=== PATIENT | male | born 1995 | race Caucasian/White ===

== ENCOUNTER 2024-01-21 11:25 | Emergency (ER) | payer SELFPAY ==
[2024-01-21 11:33] VITALS: BP 129/84; PULSE 83; TEMP 36.8; O2SAT 98; BMI 26.6
[2024-01-21 11:42] LABS: Basophils % 0.5 %; Eosinophils # 0.2 10^3/uL (0.0-0.8); Eosinophils % 3.4 %; Hematocrit 44.3 % (37-53); Lymphocytes # 2.2 10^3/uL (0.8-4.8); Lymphocytes % 35.3 %; Mean Corpuscular HGB Conc 34.8 g/dL (30-55); Mean Corpuscular Hemoglobin 30.8 pg (27-33); Mean Corpuscular Volume 88.6 fl (82-101); Mean Platelet Volume 8.9 fL (7.4-10.4); Monocytes # 0.5 10^3/uL (0.2-0.9); Monocytes % 8.1 %; Neutrophils # 3.25 10^3/uL (1.8-7.7); Neutrophils % 52.5 %; Nucleated Red Blood Cells % 0 %; Platelet Count 296 10^3/cmm (157-399); Red Cell Distribution Width 12.3 % (12.1-15.1); White Blood Count 6.18 10^3/uL (3.29-11.43)
--- NOTE | 2024-01-21 11:51 | ED.C_ITS ---
HPI - Psych 2 General: Chief Complaint: Psychiatric Symptoms Stated Complaint: SI Time Seen by Provider: 01/21/24 11:28 Source: patient Mode of arrival: ambulatory Limitations: no limitations History of Present Illness: Patient is a 28-year-old male who is currently residing at [facility] here after administration there wanted him to come to the emergency department for evaluation of his chronic schizophrenia. Patient states he chronically has visual and auditory hallucinations. Other psychiatric diagnoses include anxiety, depression, ADHD. Patient states he has not been on meds for several years. He states the voices are not telling him to harm himself or other people. He states the voices or hallucinations have never caused him to act dangerously or put himself in harm's way or other people. He is not currently suicidal or homicidal. MD complaint: other (Chronic schizophrenia) Onset (ago): year(s) Duration: constant History of same: Yes Relieving factors: none Exacerbating factors: none Context: not taking psychiatric medications Associated psychiatric symptoms: auditory hallucinations and visual hallucinations Associated symptoms: Reports auditory hallucinations and visual hallucinations; Deny homicidal ideation or suicidal ideation Treatments prior to arrival: none Related Data Allergies Allergy/AdvReac Type Severity Reaction Status Date / Time No Known Allergies Allergy Verified 01/21/24 11:38 Review of Systems 2 Psych: Reports: anxiety, difficulty concentrating, visual hallucinations and auditory hallucinations; Denies: panic attacks, hopelessness, irritability, suicidal ideation or homicidal ideation Physical Exam 2 Const: COMMON NORMALS: no acute distress, patient oriented x3, alert and well nourished GENERAL APPEARANCE: cooperative and well kempt Resp: COMMON NORMALS: normal respiratory effort and clear to auscultation bilaterally AUSCULTATION: clear to auscultation bilaterally Cardio: COMMON NORMALS: regular rate and regular rhythm RATE: regular rate RHYTHM: regular rhythm Neuro: COMMON NORMALS: patient oriented x3 SENSORIUM/ORIENTATION: Yes alert Psych: COMMON NORMALS: mental status grossly normal, Normal thought process present, cooperative, normal affect, speech normal and denies homicidal ideation APPEARANCE: Yes grossly normal and Yes well kempt ATTITUDE: Yes calm A CTIVITY/MOTOR BEHAVIOR: Yes appropriate eye contact, No psychomotor agitation and Yes fidgeting SPEECH: Yes normal speech MOOD & AFFECT: Yes euthymic mood THOUGHT PROCESS: Normal thought process present THOUGHT CONTENT: Yes Normal thought content present MEMORY/COGNITION: Yes memory grossly intact and Yes cognition grossly intact INSIGHT: Good insight present (Psych) J UDGEMENT: Good judgement present (Psych) Course 2 Vital Signs: Vital signs: Vital Signs Temperature 98.3 F 01/21/24 11:33 Pulse Rate 71 01/21/24 12:12 Blood Pressure 116/72 01/21/24 12:12 Pulse Oximetry 92 01/21/24 12:12 Oxygen Delivery Me thod Room Air 01/21/24 11:33 MDM - Psych Medical Decision Making Patient has a history of chronic schizophrenia. Auditory/visual hallucinations open present for years. He is not suicidal or homicidal. Voices are not commanding/derogatory and have never caused patient to harm himself or other people or acting dangerously/irresponsibly. Spoke to Dr. Norman who agrees patient does not require emergent hospitalization at this time. He recommends patient be referred to the crisis stabilization center. Lab Data 01/21/24 11:37 01/21/24 11:37 Laboratory Results WBC 6.18 10^3/uL (3.29-11.43) 01/21/24 11:37 RBC 5.00 10^6/uL (3.85-5.65) 01/21/24 11:37 Hgb 15.40 g/dL (11.27-16.99) 01/21/24 11:37 Hct 44.3 % (37-53) 01/21/24 11:37 MCV 88.6 fl (82-101) 01/21/24 11:37 MCH 30.8 pg (27-33) 01/21/24 11:37 MCHC 34.8 g/dL (30-55) 01/21/24 11:37 RDW 12.3 % (12.1-15.1) 01/21/24 11:37 Plt Count 296 10^3/cmm (157-399) 01/21/24 11:37 MPV 8.9 fL (7.4-10.4) 01/21/24 11:37 Neut % (Auto) 52.5 % 01/21/24 11:37 Lymph % (Auto) 35.3 % 01/21/24 11:37 [place] % (Auto) 8.1 % 01/21/24 11:37 Eos % (Auto) 3.4 % 01/21/24 11:37 Baso % (Auto) 0.5 % 01/21/24 11:37 Neut # (Auto) 3.25 10^3/uL (1.8-7.7) 01/21/24 11:37 Lymph # (Auto) 2.2 10^3/uL (0.8-4.8) 01/21/24 11:37 [place] # (Auto) 0.5 10^3/uL (0.2-0.9) 01/21/24 11:37 Eos # (Auto) 0.2 10^3/uL (0.0-0.8) 01/21/24 11:37 Baso # (Auto) 0.0 10^3/uL (0.0-0.1) 01/21/24 11:37 Nucleated RBC % (auto) 0 % 01/21/24 11:37 Nucleated RBCs # 0.0 /100WBC 01/21/24 11:37 Sodium 139 mmol/L (136-145) 01/21/24 11:37 Potassium 4.0 mmol/L (3.5-5.1) 01/21/24 11:37 Chloride 104 mmol/L (98-107) 01/21/24 11:37 Carbon Dioxide 23 mmol/L (22-29) 01/21/24 11:37 Anion Gap 16.0 (5-19) 01/21/24 11:37 BUN 16 mg/dL (6-20) 01/21/24 11:37 Creatinine 0.8 mg/dL (0.7-1.2) 01/21/24 11:37 GFR Calculation 114.3 mL/min (90-130) 01/21/24 11:37 Glucose 107 mg/dL (65-115) 01/21/24 11:37 Calculated Osmolality 290 mOsm/kg (285-295) 01/21/24 11:37 Calcium 9.5 mg/dL (8.5-10.5) 01/21/24 11:37 Total Bilirubin 0.5 mg/dL (0.15-1.2) 01/21/24 11:37 AST 19 U/L (0-40) 01/21/24 11:37 ALT 30 U/L (0-41) 01/21/24 11:37 Alkaline Phosphatase 84 U/L (40-130) 01/21/24 11:37 Total Protein 7.4 g/dL (6.6-8.7) 01/21/24 11:37 Albumin 4.6 g/dL (3.5-5.2) 01/21/24 11:37 Globulin 2.8 g/dL (1.3-4.6) 01/21/24 11:37 Salicylates 0.7 mg/dL (3-10) L 01/21/24 11:37 Urine Opiates Screen Negative ng/mL (Negative) 01/21/24 11:45 Acetaminophen < 5.0 ug/mL (10-30) L 01/21/24 11:37 Ur Barbiturates Screen Negative ng/mL (Negative) 01/21/24 11:45 Ur Phencyclidine Scrn Negative ng/mL (Negative) 01/21/24 11:45 Ur Amphetamines Screen Negative ng/mL (Negative) 01/21/24 11:45 U Benzodiazepines Scrn Negative ng/mL (Negative) 01/21/24 11:45 Urine Cocaine Screen Negative ng/mL (Negative) 01/21/24 11:45 U Marijuana (THC) Screen Negative ng/mL (Negative) 01/21/24 11:45 Ethyl Alcohol < 10 mg/dL (0-10) 01/21/24 11:37 No radiology studies performed this visit Discharge Plan Discharge Patient Disposition: Home Clinical Impression: Chronic schizophrenia Condition: Stable Discharge Orders: Discharge ED (Routine); Ordered 01/21/24 Ordered By: She Fulton Activity Restrictions/Additional Instructions: At discharge I would like you to go to the Crisis Stabilization Center for further evaluation. They will be able to assess you and arrange outpatient services through [facility] [place]. There is no indication for emergent hospitalization at this time. Coding Level of Care Code ED Door Manager for Nikita Posada
[2024-01-21 12:01] LABS: Alanine Aminotransferase 30 U/L (0-41); Albumin Level 4.6 g/dL (3.5-5.2); Alkaline Phosphatase 84 U/L (40-130); Aspartate Amino Transferase 19 U/L (0-40); Blood Urea Nitrogen 16 mg/dL (6-20); Calcium 9.5 mg/dL (8.5-10.5); Carbon Dioxide 23 mmol/L (22-29); Chloride 104 mmol/L (98-107); Creatinine Clr Calc Pharmacy 131.4602; Globulin 2.8 g/dL (1.3-4.6); Glomerular Filtration Rate 114.3 mL/min (90-130); Glucose 107 mg/dL (65-115); Osmolality Calculated 290 mOsm/kg (285-295); Salicylate 0.7 mg/dL (3-10); Sodium 139 mmol/L (136-145); Total Bilirubin 0.5 mg/dL (0.15-1.2); Total Protein 7.4 g/dL (6.6-8.7)
[2024-01-21 12:07] LABS: Acetaminophen < 5.0 ug/mL (10-30); Alcohol Level < 10 mg/dL (0-10)
[2024-01-21 12:12] VITALS: BP 116/72; PULSE 71; O2SAT 92
[2024-01-21 12:14] LABS: Amphetamines Screen Urine Negative (Negative); Barbiturates Screen Urine Negative (Negative); Benzodiazepines Screen Urine Negative (Negative); Cocaine Screen Urine Negative (Negative); Opiate Screen Urine Negative (Negative); PCP Screen Urine Negative (Negative); THC Screen Urine Negative (Negative)
== END 2024-01-21 12:19 | disposition home or self-care (01) ==
PROVIDERS: Emergency Provider Physician Assistant
DX: F20.9 Schizophrenia, unspecified (principal)
CPT/HCPCS: 36415; 80053; 80306; 80307; 85025; 99283

== ENCOUNTER 2024-03-24 13:35 | Inpatient (IN) | payer MEDICAID, SELFPAY ==
[2024-03-24 13:36] VITALS: BP 137/89; PULSE 83; RESP 17; TEMP 36.6; O2SAT 100
--- NOTE | 2024-03-24 13:39 | ED.C_ITS ---
HPI - Psych 2 General: Chief Complaint: Psychiatric Symptoms Stated Complaint: 96 Hold Time Seen by Provider: 03/24/24 13:36 Source: patient Mode of arrival: ambulatory Limitations: no limitations History of Present Illness: 29-year-old male has a history of schizo phrenia states he has not been medicated for years he is here from the crisis stabilization unit on nine 6-hour hold as he has had increasing auditory hallucinations he denies SI or HI any states that he does not feel safe with all the hallucinations. Associated symptoms: Reports depression Related Data Allergies Allergy/AdvReac Type Severity Reaction Status Date / Time No Known Allergies Allergy Verified 01/21/24 11:38 Review of Systems 2 Const: Denies: fever(s), chills, body aches or change in appetite ENMT: Denies: throat pain or dental pain Card: Denies: chest pain Resp: Denies: dyspnea GI: Denies: abdominal pain, nausea, vomiting or diarrhea Musc: Denies: neck pain or back pain Skin/Breast: Denies: rash Neuro: Denies: headache(s) Psych: Reports: anxiety, depression and paranoia Physical Exam 2 Const: COMMON NORMALS: no acute distress, patient oriented x3 and healthy appearing HENMT: COMMON NORMALS: normocephalic and atraumatic HEAD & SCALP: n ormocephalic and atraumatic Neck/C-Spine: COMMON NORMALS: full ROM and supple Chest: COMMONS NORMALS: normal inspection of the chest Resp: COMMON NORMALS: normal respiratory effort Cardio: COMMON NORMALS: regular rate, regular rhythm and No murmurs present (Cardio) RATE: regular rate RHYTHM: regular rhythm Extremity: COMMON NORMALS: normal to inspection and full ROM Neuro: COMMON NORMALS: patient oriented x3, moves all extremities and no focal motor deficits Psych: COMMON NORMALS: mental status grossly normal and cooperative MOOD & AFFECT: Yes elevated mood THOUGHT PROCESS: racing thoughts Skin: COMMON NORMALS: no rashes or lesions noted and no wounds GENERAL SKIN EXAM: no rashes or lesions noted Course 2 Vital Signs: Vital signs: Vital Signs Temperature 97.9 F 03/24/24 13:36 Pulse Rate 83 03/24/24 13:43 Respiratory Rate 17 03/24/24 13:43 Blood Pressure 137/89 03/24/24 13:43 Pulse Oximetry 100 03/24/24 13:43 Oxygen Delivery Me thod Room Air 03/24/24 13:43 MDM - Psych Medical Decision Making Patient presents here with hallucinations history of schizophrenia is under 96- hour hold I spoke to the psychiatrist he is medically cleared will admit. Medical Records I reviewed the patient's medical records. Lab Data I reviewed the patient's lab results. 03/24/24 13:44 03/24/24 13:44 Laboratory Results WBC 5.06 10^3/uL (3.29-11.43) 03/24/24 13:44 RBC 4.56 10^6/uL (3.85-5.65) 03/24/24 13:44 Hgb 13.90 g/dL (11.27-16.99) 03/24/24 13:44 Hct 42.0 % (37-53) 03/24/24 13:44 MCV 92.1 fl (82-101) 03/24/24 13:44 MCH 30.5 pg (27-33) 03/24/24 13:44 MCHC 33.1 g/dL (30-55) 03/24/24 13:44 RDW 13.2 % (12.1-15.1) 03/24/24 13:44 Plt Count 345 10^3/cmm (157-399) 03/24/24 13:44 MPV 9.0 fL (7.4-10.4) 03/24/24 13:44 Neut % (Auto) 53.8 % 03/24/24 13:44 Lymph % (Auto) 31.2 % 03/24/24 13:44 [place] % (Auto) 9.5 % 03/24/24 13:44 Eos % (Auto) 4.3 % 03/24/24 13:44 Baso % (Auto) 1.0 % 03/24/24 13:44 Neut # (Auto) 2.72 10^3/uL (1.8-7.7) 03/24/24 13:44 Lymph # (Auto) 1.6 10^3/uL (0.8-4.8) 03/24/24 13:44 [place] # (Auto) 0.5 10^3/uL (0.2-0.9) 03/24/24 13:44 Eos # (Auto) 0.2 10^3/uL (0.0-0.8) 03/24/24 13:44 Baso # (Auto) 0.1 10^3/uL (0.0-0.1) 03/24/24 13:44 Nucleated RBC % (auto) 0 % 03/24/24 13:44 Nucleated RBCs # 0.0 /100WBC 03/24/24 13:44 No radiology studies performed this visit Discharge Plan Discharge Patient Disposition: Admitted As Inpatient Clinical Impression: Acute psychosis Condition: Stable Coding Level of Care Code ED Research Support Specialist for Nikita Posada
[2024-03-24 13:43] VITALS: BP 137/89; PULSE 83; RESP 17; O2SAT 100
[2024-03-24 13:58] LABS: Basophils # 0.1 10^3/uL (0.0-0.1); Eosinophils # 0.2 10^3/uL (0.0-0.8); Eosinophils % 4.3 %; Lymphocytes # 1.6 10^3/uL (0.8-4.8); Lymphocytes % 31.2 %; Mean Corpuscular HGB Conc 33.1 g/dL (30-55); Mean Corpuscular Hemoglobin 30.5 pg (27-33); Mean Corpuscular Volume 92.1 fl (82-101); Monocytes # 0.5 10^3/uL (0.2-0.9); Monocytes % 9.5 %; Neutrophils # 2.72 10^3/uL (1.8-7.7); Neutrophils % 53.8 %; Nucleated Red Blood Cells % 0 %; Platelet Count 345 10^3/cmm (157-399); Red Blood Count 4.56 10^6/uL (3.85-5.65); Red Cell Distribution Width 13.2 % (12.1-15.1); White Blood Count 5.06 10^3/uL (3.29-11.43)
--- NOTE | 2024-03-24 14:04 | PC.PHAR ---
patient states he used to take meds a long time ago, doesn't take any now. Also, doesnt have a pharmacy preference either.
[2024-03-24 14:20] LABS: Alanine Aminotransferase 23 U/L (0-41); Albumin Level 4.5 g/dL (3.5-5.2); Alkaline Phosphatase 91 U/L (40-130); Anion Gap 14.1 (5-19); Aspartate Amino Transferase 22 U/L (0-40); Blood Urea Nitrogen 11 mg/dL (6-20); Calcium 9.2 mg/dL (8.5-10.5); Carbon Dioxide 27 mmol/L (22-29); Chloride 100 mmol/L (98-107); Globulin 2.7 g/dL (1.3-4.6); Glomerular Filtration Rate 158.2 mL/min (90-130); Glucose 103 mg/dL (65-115); Osmolality Calculated 284 mOsm/kg (285-295); Potassium 4.1 mmol/L (3.5-5.1); Sodium 137 mmol/L (136-145); Total Bilirubin 0.3 mg/dL (0.15-1.2); Total Protein 7.2 g/dL (6.6-8.7)
[2024-03-24 14:21] LABS: Acetaminophen < 5.0 ug/mL (10-30); Alcohol Level < 10 mg/dL (0-10); Salicylate < 0.3 mg/dL (3-10)
[2024-03-24 14:37] LABS: Amphetamines Screen Urine Negative (Negative); Barbiturates Screen Urine Negative (Negative); Benzodiazepines Screen Urine Negative (Negative); Cocaine Screen Urine Negative (Negative); Opiate Screen Urine Negative (Negative); PCP Screen Urine Negative (Negative); THC Screen Urine Negative (Negative)
[2024-03-24 15:07] VITALS: BP 126/81; PULSE 79; O2SAT 100
[2024-03-24 15:16] VITALS: BP 136/82; PULSE 73; RESP 16; TEMP 36.8; O2SAT 99
--- NOTE | 2024-03-24 16:24 | PC.NURSE ---
Patient states he is here because he has been hearing voices that keep getting worse. He states that it makes him angry and he hears more than one at a time. He denies vh and si/hi. Patient does endorse a history of schizophrenia and that it has been a few years since he has taken his psychiatric medications. He states he only recalls taking strattera and prozac. He denies having a support system and says he currently stays at the [facility] or in the park here in [place]. Patient says he has been to rehab for alcohol abuse in [place], [place] and somewhere in [place] but can't remember the names of the rehabs and is unsure of the dates he was there but believes it was approximately 5 years ago. Patient denies any alcohol or drug abuse at this time and his drug screen reflects that. He did say he had a plan to move to [place] from [place] because he wanted to buy a two story house to live in with his friends and that all of his friends were models. Patient laughed inappropriately throughout the assessment as if he were currently hearing voices.
[2024-03-24 19:59] VITALS: BP 119/69; PULSE 90; RESP 18; TEMP 36.4; O2SAT 97
[2024-03-25 06:00] VITALS: BP 135/77; PULSE 99; RESP 18; TEMP 36.7; O2SAT 94
--- NOTE | 2024-03-25 11:42 | P.NPUHP_ITS ---
Providers/Chief Complaint 2 Admitting Physician: Anders Knight MD Chief Complaint: 96 Hold [facility] NPU History of Present Illness Maximino Shore is a 29 year old male who presented to the emergency department with the following report: Chief Complaint: Psychiatric Symptoms Stated Complaint: 96 Hold Time Seen by Provider: 03/24/24 13:36 Source: patient Mode of arrival: ambulatory Limitations: no limitations History of Present Illness: 29-year-old male has a history of schizophrenia states he has not been medicated for years he is here from the crisis stabilization unit on nine 6-hour hold as he has had increasing auditory hallucinations he denies SI or HI any states that he does not feel safe with all the hallucinations. Associated symptoms: Reports depression. He was admitted to the neuropsychiatric unit for definitive treatment of those issues. He is known to [facility] psychiatry through outpatient services through the crisis stabilization center. He presented there multiple times and seemed to be having a decompensation over the time he has been down there. They report he can often be found in the bathroom screaming at himself. He was identified as having significant auditory hallucinations and not feeling safe and so he was sent to the emergency department and then admitted and transferred to the neuropsychiatric unit. An excerpt of his mental health assessment focused CSC is included below for context and the fact there have been no substantive changes since then. He presented today reporting: Chief complaint The patient is seeking help for worsening symptoms of schizophrenia, ADHD, and anxiety, for which he has not been on medication for several years. History of the present complaint The patient, born on 1995, reported that he has been off his medications for several years due to losing track of time and not having an ID to apply for them. He previously took medication for his schizophrenia, ADHD, and anxiety. The medications he was prescribed included Prozac, Ritalin, and Latuda, which he reported worked well for him. He stopped taking these medications approximately six years ago. The patient's symptoms have been worsening, leading him to seek medical help. He has never been in a psychiatric hospital before but has attended a mental health clinic in [place], [place] for a few years. He has recently acquired medical insurance but is unsure of the details. The patient has a history of substance use, including tobacco, vaping, and alcohol. He reported that he used to be an alcoholic but has since quit drinking. He has tried marijuana a few times but stopped due to discomfort. He has also experimented with other drugs in the past but did not continue their use. He has been to rehab for a few months but has never had any DUI charges or other legal issues related to substance use. The patient reported experiencing significant depression, including suicidal thoughts, but has never acted on these thoughts. He also experiences constant anxiety and worry. There have been instances where he felt paranoid, as if people were out to get him or following him. He has also had experiences of hearing and seeing things that were not there. He reported having issues with nightmares and flashbacks. The patient has a history of self-injurious behavior, including cutting and burning himself. He has also experienced periods of low mood and feelings of helplessness. He has never been in a snf or foster care. The patient dropped out of school at the 10th grade and has attempted to get his GED three times without success. He identifies as heterosexual and has been in relationships lasting two to three years. He has never been and does not have any biological children. 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 He is currently homeless and has been for a few years since leaving [place] to travel towards [place]. He has been incarcerated a couple of times for public intoxication, with the longest time being six months. The patient denied any current thoughts of self-harm or harm to others. He also denied feeling paranoid or experiencing hallucinations at the time of the consultation. The plan is to restart his Prozac and Latuda medications, but not the Strattera. Social history The patient has a history of alcoholism but quit drinking a long time ago. He has tried cannabis and other drugs a few times in the past, but did not continue their use. He has been to rehab for a few months. He has no history of DUI or other charges. He has a history of tobacco use and currently vapes. He has been homeless for a few years after leaving [place] and traveling towards [place]. 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 He identifies as heterosexual and has been in relationships lasting two to three years. He has never been and has no biological children. He dropped out of school in the 10th grade and has tried to get his GED three times without success. Per his 01/21/2024 outpatient psychiatric assessment: Admission Information Reason for Admission: Client was referred to visit our facility by the [facility] emergency room. Per records, Client had spoken to the the admitting physician to the NPU and does not meet criteria for admission at this time. Client was referred to the Crisis center for assessment and assistance obtaining services through [facility]. Chief Complaint: Client reports hearing auditory hallucinations, making it difficult to concentrate and maintain focus. Current Presentation: Maximino is a 28 year old male who appears well-groomed and appropriately dressed for the weather. Eye contact and activity level appear normal. Client was cooperative overall, but did appear disengaged throughout the conversation, utilizing his cellphone frequently throughout the encounter. Mood could be described as slightly anxious, with client appearing fidgety or hesitant at times. Thought process is mostly logical with client aware of current symptoms. Client is oriented to person/place/time. Client reports hearing auditory hallucinations, specifying it sounds like faint voices. Client would not disclose what the voices were saying, reporting they are faint and/or vague. He does state this is negatively impacting his ability to focus. In the past, he disclose it felt like they were taking control and feeling an immense draining feeling. He states they auditory hallucinations have been occurring for several years and have been fairly consistent. He denies any changes or worsening of symptoms. Client denies any visual hallucinations at this time. Client appears to have moderate insight and moderate judgment. Maximino is currently unhoused and has been staying at [facility], presently. He reports visiting the ER on recommendation from [facility] staff and was subsequently referred to the crisis center by the attending physician of the [facility] ER. History Past Diagnosis and Psychiatric History: Client self-reports a history of Schizophrenia, depression, anxiety. Maximino states he recieved these diagnosis from his healthcare provider in [place], [place] at [facility]. He reports he recieved these diagnosis approximately 10 years ago. Maximino endorses being treated with the medications Prozac, Ritalin, and an anti-depressant but states he has not been medicated for the past 3 years. Current Social/Environmental Situation Current Living Environment/Relationships: Client reports he is staying at the [facility] for the past 2 weeks. Do you have any relationships that are supportive of your recovery? (e.g., family, friends): Yes (no) Do you currently live where others drink alcohol and/or use: No Are you currently involved in relationships or situations that pose a threat to your safety?: No Are you currently involved in relationships or situations that could negatively affect your recovery?: No Have you ever had hobbies? How do you spend free time? (e.g., interests; activities; recreation)?: Yes (Play videogames, prefers to stay solitary) Spiritual Practice: None (non roman catholic) Is this still your preference: Yes Are you currently involved with elementary school social worker or the legal system? (Court ordered, probation, etc.): No Employment/Support Status Education Completed: completed 9th grade Training or technical education completed:: none Do you have a profession, trade, or skill?: No Do you have a valid local hazmat driver?s license?: No Do you have an automobile available for use?: No How long was your longest full-time job?: couple odd jobs here and there Does someone contribute to your support in any way? Is patient receiving any regular support (i.e., [place]man, food, housing) from family/friend? Include spouse?s contribution; exclude support by an institution: No Does this constitute the majority of your support?: Yes Usual employment pattern, past 3 years? Employment/Support Comments: not at the moment How much money did you receive from the following sources in the past 30 days? Use Patient Rating Scale Use Interviewer Severity Rating Employment/Support Comments: Maximino is not currently employed. Substance Use History Substance Use: denies substance/drug use Are you currently experiencing withdrawal symptoms such as tremors, excessive sweating, rapid heart rate, blackouts, anxiety, vomiting. etc.?: No Do you get physically ill when you stop using alcohol/or drugs?: No Do you have a history of serious withdrawal, seizures, or life-threatening symptoms during withdrawal?: No Do you find yourself using more alcohol and/or other drugs than you intend to?: No Do you find yourself using more alcohol and/or drugs in order to get the same high?: No What is your family history of alcohol and/or drug use?: Client reports no current substance use Meds NPU Home Medications Medication Instructions Recorded Confirmed Last Taken Type No Known Home Medications 03/24/24 03/24/24 Unknown History Allergies Allergy/AdvReac Type Severity Reaction Status Date / Time No Known Allergies Allergy Verified 01/21/24 11:38 Mental Status Exam 2 MSE Comments: This is a well-nourished well-developed white male in hospital scrubs with limited grooming and eye contact. No abnormal movements except for mild psychomotor agitation. He was cooperative with exam in mild distress. Speech was decreased rate and volume. Mood described as slightly depressed and anxious, his affect was mood congruent. Thought process was linear. Thought content: Patient denied suicidal or homicidal ideation. There were no delusions reported or but some guardedness noted, he denied auditory or visual hallucinations but seem like he might be attending to internal stimuli at times. Attention and concentration were mostly intact and memory appeared somewhat reliable but none were formally tested. He is alert and oriented to person, place and situation. Insight, judgment and impulse control all impaired. Vitals/I&O/Wt Last Vital Signs Temp 98.0 F 03/25/24 06:00 Pulse 99 03/25/24 06:00 Resp 18 03/25/24 06:00 BP 135/77 03/25/24 06:00 Pulse Ox 94 03/25/24 06:00 O2 Del Method Room Air 03/24/24 15:20 Weight last 48 hrs Weight 84.397 kg Data NPU 03/24/24 13:44 03/24/24 13:44 A&P Assessment and plan (1) Schizophrenia: (2) History of ADHD: (3) Depression: Plan This is a 29-year-old white male with a history of addiction and some mental health challenges and being off medications for years now. The patient presents with untreated schizophrenia, ADHD, and anxiety, which have been worsening. He has a history of substance abuse, including alcohol, tobacco, and intermittent illicit drug use. He is currently experiencing homelessness and has a history of occupational instability. 1.? Restart Prozac and possibly Latuda. 2.? Continue every 15 minute checks for safety. 3.? Encourage individual, group and milieu therapies. 4. Encourage sober living treatment after discharge at the highest level care to which he is willing to commit. 5. Obtain collateral information. Involuntary Hold Information 2 96 Hour Hold: 96 Hour Involuntary Admission: Yes 96 Hour Hold Ending Date: 03/31/24 96 Hour Hold Ending Time: 13:39 Other Hold: Hold End Date: 03/31/24 Attestations NPU 2 Medical Necessity Statement*: Inpatient hospitalization is medically necessary and the clinically appropriate intervention at this time. We will monitor medications/initiate medications and make changes as indicated. He will be in the hospital for over 2 midnights. Likely length of stay 3 to 5 days. Coding Level of Care Code Acute Code for Chg Fwd Diagnoses Schizophrenia F20.9 History of ADHD Z86.59 Depression F32.A
[2024-03-25 14:00] VITALS: BP 128/77; PULSE 84; RESP 16; TEMP 36.6; O2SAT 98
[2024-03-25] MEDS: fluoxetine 20 mg Capsule PO (14:37)
[2024-03-25] MEDS: lurasidone 20 mg Tablet PO (17:26)
[2024-03-25 19:43] VITALS: BP 116/67; PULSE 88; RESP 18; TEMP 36.7; O2SAT 99
[2024-03-26 04:55] VITALS: BP 122/73; PULSE 80; RESP 18; TEMP 36.7; O2SAT 98
[2024-03-26] MEDS: fluoxetine 20 mg Capsule PO (11:04)
[2024-03-26 13:35] VITALS: BP 132/84; PULSE 86; RESP 18; TEMP 36.6; O2SAT 97
[2024-03-26] MEDS: lurasidone 20 mg Tablet PO (16:53)
--- NOTE | 2024-03-26 16:55 | P.NPUPN_ITS ---
Subjective NPU 2 Subjective: Patient presented today reporting that he is doing okay. He denied any issues with the restarting of his medication. He was isolative per staff reports and direct observation. He reports hoping that the medication helps him feel better again and then he can discharge. He denied any side effects of medication. Mental Status Exam 2 MSE Comments: This is a well-nourished well-developed white male in hospital scrubs with limited grooming and eye contact. No abnormal movements except for mild psychomotor agitation. He was cooperative with exam in mild distress. Speech was decreased rate and volume. Mood described as slightly depressed and anxious, his affect was mood congruent. Thought process was linear. Thought content: Patient denied suicidal or homicidal ideation. There were no delusions reported or but some guardedness noted, he denied auditory or visual hallucinations but seem like he might be attending to internal stimuli at times. Attention and concentration were mostly intact and memory appeared somewhat reliable but none were formally tested. He is alert and oriented to person, place and situation. Insight, judgment and impulse control all impaired. Vitals/I&O/Wt Last Vital Signs Temp 97.8 F 03/26/24 13:35 Pulse 86 03/26/24 13:35 Resp 18 03/26/24 13:35 BP 132/84 03/26/24 13:35 Pulse Ox 97 03/26/24 13:35 O2 Del Method Room Air 03/25/24 14:00 Weight last 48 hrs Weight 84.397 kg Data NPU 03/24/24 13:44 03/24/24 13:44 A&P Assessment and plan (1) Schizophrenia: (2) History of ADHD: (3) Depression: Plan This is a 29-year-old white male with a history of addiction and some mental health challenges and being off medications for years now. The patient presents with untreated schizophrenia, ADHD, and anxiety, which have been worsening. He has a history of substance abuse, including alcohol, tobacco, and intermittent illicit drug use. He is currently experiencing homelessness and has a history of occupational instability. 1.? Restarted Prozac and possibly Latuda. 2.? Continue every 15 minute checks for safety. 3.? Encourage individual, group and milieu therapies. 4. Encourage sober living treatment after discharge at the highest level care to which he is willing to commit. 5. Obtain collateral information. Involuntary Hold Information 2 96 Hour Hold: 96 Hour Involuntary Admission: Yes 96 Hour Hold Ending Date: 03/31/24 96 Hour Hold Ending Time: 13:39 Other Hold: Hold End Date: 03/31/24 Attestations NPU 2 Medical Necessity Statement*: Inpatient hospitalization is medically necessary and the clinically appropriate intervention at this time. We will monitor medications/initiate medications and make changes as indicated. Likely length of stay 3 to 5 days. Coding Level of Care Code Acute Code for [facility] Fwd Diagnoses Schizophrenia F20.9 History of ADHD Z86.59 Depression F32.A
[2024-03-26 19:59] VITALS: BP 121/67; PULSE 97; RESP 18; TEMP 36.4; O2SAT 97
[2024-03-27 06:00] VITALS: BP 126/66; PULSE 92; RESP 16; TEMP 36.4; O2SAT 99
[2024-03-27] MEDS: fluoxetine 20 mg Capsule PO (09:38)
[2024-03-27 14:00] VITALS: BP 107/67; PULSE 89; RESP 18; TEMP 36.7; O2SAT 93
--- NOTE | 2024-03-27 14:44 | P.NPUPN_ITS ---
Subjective NPU 2 Subjective: Patient presented today reporting that he is doing okay with the restarting of his medication. He reports that he has been working with the social work team on some sober living options that he would undertake after discharge. He reports that he knows he needs to focus on his recovery. He denied any side effects to the medication. Mental Status Exam 2 MSE Comments: This is a well-nourished well-developed white male in hospital scrubs with limited grooming and eye contact. No abnormal movements except for mild psychomotor agitation. He was cooperative with exam in mild distress. Speech was decreased rate and volume. Mood described as slightly depressed and anxious, his affect was mood congruent. Thought process was linear. Thought content: Patient denied suicidal or homicidal ideation. There were no delusions reported or but some guardedness noted, he denied auditory or visual hallucinations but seem like he might be attending to internal stimuli at times. Attention and concentration were mostly intact and memory appeared somewhat reliable but none were formally tested. He is alert and oriented to person, place and situation. Insight, judgment and impulse control all impaired. Vitals/I&O/Wt Last Vital Signs Temp 97.6 F 03/27/24 06:00 Pulse 92 03/27/24 06:00 Resp 16 03/27/24 06:00 BP 126/66 03/27/24 06:00 Pulse Ox 99 03/27/24 06:00 O2 Del Method Room Air 03/25/24 14:00 Data NPU 03/24/24 13:44 03/24/24 13:44 A&P Assessment and plan (1) Schizophrenia: (2) History of ADHD: (3) Depression: Plan This is a 29-year-old white male with a history of addiction and some mental health challenges and being off medications for years now. The patient presents with untreated schizophrenia, ADHD, and anxiety, which have been worsening. He has a history of substance abuse, including alcohol, tobacco, and intermittent illicit drug use. He is currently experiencing homelessness and has a history of occupational instability. 1.? Restarted Prozac and Latuda. 2.? Continue every 15 minute checks for safety. 3.? Encourage individual, group and milieu therapies. 4. Encourage sober living treatment after discharge at the highest level care to which he is willing to commit. 5. Obtain collateral information. Involuntary Hold Information 2 96 Hour Hold: 96 Hour Involuntary Admission: Yes 96 Hour Hold Ending Date: 03/31/24 96 Hour Hold Ending Time: 13:39 Other Hold: Hold End Date: 03/31/24 Attestations NPU 2 Medical Necessity Statement*: Inpatient hospitalization is medically necessary and the clinically appropriate intervention at this time. We will monitor medications/initiate medications and make changes as indicated. Likely length of stay 3 to 5 days. Coding Level of Care Code Acute Code for [facility] Fw Diagnoses Schizophrenia F20.9 History of ADHD Z86.59 Depression F32.A
[2024-03-27] MEDS: lurasidone 20 mg Tablet PO (17:41)
[2024-03-27 22:00] VITALS: BP 109/60; PULSE 82; RESP 18; TEMP 36.4; O2SAT 99
[2024-03-28 06:00] VITALS: BP 125/78; PULSE 87; RESP 17; TEMP 36.6; O2SAT 99
--- NOTE | 2024-03-28 07:48 | P.NPUPN_ITS ---
Subjective NPU 2 Subjective: Patient presented today reporting that he is feeling a little better as he is getting balanced by his medications. He reports that he is feeling committed to recovery and is working with the social work team on possible rehab situations. He reports he is optimistic about things going forward. He denied any side effects to the medications being restarted. Mental Status Exam 2 MSE Comments: This is a well-nourished well-developed white male in hospital scrubs with limited grooming and eye contact. No abnormal movements except for mild psychomotor agitation. He was cooperative with exam in mild distress. Speech was decreased rate and volume. Mood described as slightly depressed and anxious, his affect was mood congruent. Thought process was linear. Thought content: Patient denied suicidal or homicidal ideation. There were no delusions reported or but some guardedness noted, he denied auditory or visual hallucinations but seem like he might be attending to internal stimuli at times. Attention and concentration were mostly intact and memory appeared somewhat reliable but none were formally tested. He is alert and oriented to person, place and situation. Insight, judgment and impulse control all impaired. Vitals/I&O/Wt Last Vital Signs Temp 97.9 F 03/28/24 06:00 Pulse 87 03/28/24 06:00 Resp 17 03/28/24 06:00 BP 125/78 03/28/24 06:00 Pulse Ox 99 03/28/24 06:00 O2 Del Method Room Air 03/25/24 14:00 Data NPU 03/24/24 13:44 03/24/24 13:44 A&P Assessment and plan (1) Schizophrenia: (2) History of ADHD: (3) Depression: Plan This is a 29-year-old white male with a history of addiction and some mental health challenges and being off medications for years now. The patient presents with untreated schizophrenia, ADHD, and anxiety, which have been worsening. He has a history of substance abuse, including alcohol, tobacco, and intermittent illicit drug use. He is currently experiencing homelessness and has a history of occupational instability. 1.? Restarted Prozac and Latuda. 2.? Continue every 15 minute checks for safety. 3.? Encourage individual, group and milieu therapies. 4. Encourage sober living treatment after discharge at the highest level care to which he is willing to commit. He reports that he is working with the social work team on possible rehab beds. 5. Obtain collateral information. Involuntary Hold Information 2 96 Hour Hold: 96 Hour Involuntary Admission: Yes 96 Hour Hold Ending Date: 03/31/24 96 Hour Hold Ending Time: 13:39 Other Hold: Hold End Date: 03/31/24 Attestations NPU 2 Medical Necessity Statement*: Inpatient hospitalization is medically necessary and the clinically appropriate intervention at this time. We will monitor medications/initiate medications and make changes as indicated. Likely length of stay 2-4 days. Coding Level of Care Code Acute Code for Chg Fwd Diagnoses Schizophrenia F20.9 History of ADHD Z86.59 Depression F32.A
[2024-03-28] MEDS: fluoxetine 20 mg Capsule PO (09:44)
[2024-03-28 14:00] VITALS: BP 127/78; PULSE 82; RESP 16; TEMP 36.4; O2SAT 97
[2024-03-28] MEDS: lurasidone 20 mg Tablet PO (17:45)
[2024-03-28 22:00] VITALS: BP 122/78; PULSE 98; RESP 18; TEMP 36.3; O2SAT 97
[2024-03-29 06:00] VITALS: BP 109/68; PULSE 85; RESP 17; TEMP 36.5; O2SAT 98
--- NOTE | 2024-03-29 07:55 | P.NPUPN_ITS ---
Subjective NPU 2 Subjective: Patient presented today reporting that things are going better. He reports he is tolerating the medication and is really looking forward to the possibility of sober living options. We discussed him working with the social work team tomorrow to identify what options are available to him. He reports that he is feeling optimistic about things moving forward and denied any side effects to medication. Mental Status Exam 2 MSE Comments: This is a well-nourished well-developed white male in hospital scrubs with limited grooming and eye contact. No abnormal movements except for mild psychomotor agitation. He was cooperative with exam in mild distress. Speech was decreased rate and volume. Mood described as slightly depressed and anxious, his affect was mood congruent. Thought process was linear. Thought content: Patient denied suicidal or homicidal ideation. There were no delusions reported or but some guardedness noted, he denied auditory or visual hallucinations but seem like he might be attending to internal stimuli at times. Attention and concentration were mostly intact and memory appeared somewhat reliable but none were formally tested. He is alert and oriented to person, place and situation. Insight, judgment and impulse control all impaired. Vitals/I&O/Wt Last Vital Signs Temp 97.7 F 03/29/24 06:00 Pulse 85 03/29/24 06:00 Resp 17 03/29/24 06:00 BP 109/68 03/29/24 06:00 Pulse Ox 98 03/29/24 06:00 O2 Del Method Room Air 03/25/24 14:00 03/28/24 03/29/24 03/29/24 22:59 06:59 14:59 Intake Total 480 / 480 Balance 480 / 480 Weight last 48 hrs Weight 81.556 kg Data NPU 03/24/24 13:44 03/24/24 13:44 A&P Assessment and plan (1) Schizophrenia: (2) History of ADHD: (3) Depression: Plan This is a 29-year-old white male with a history of addiction and some mental health challenges and being off medications for years now. The patient presents with untreated schizophrenia, ADHD, and anxiety, which have been worsening. He has a history of substance abuse, including alcohol, tobacco, and intermittent illicit drug use. He is currently experiencing homelessness and has a history of occupational instability. 1.? Restarted Prozac and Latuda. 2.? Continue every 15 minute checks for safety. 3.? Encourage individual, group and milieu therapies. 4. Encourage sober living treatment after discharge at the highest level care to which he is willing to commit. He reports that he is working with the social work team on possible rehab beds. 5. Obtain collateral information. Involuntary Hold Information 2 96 Hour Hold: 96 Hour Involuntary Admission: Yes 96 Hour Hold Ending Date: 03/31/24 96 Hour Hold Ending Time: 13:39 Other Hold: Hold End Date: 03/31/24 Attestations NPU 2 Medical Necessity Statement*: Inpatient hospitalization is medically necessary and the clinically appropriate intervention at this time. We will monitor medications/initiate medications and make changes as indicated. Likely length of stay 2-4 days. Coding Level of Care Code Acute Code for [facility] Fwd Diagnoses Schizophrenia F20.9 History of ADHD Z86.59 Depression F32.A
[2024-03-29] MEDS: fluoxetine 20 mg Capsule PO (08:32)
[2024-03-29 14:00] VITALS: BP 162/97; PULSE 90; RESP 17; TEMP 36.3; O2SAT 98
[2024-03-29] MEDS: lurasidone 20 mg Tablet PO (17:43)
[2024-03-29 21:44] VITALS: BP 122/73; PULSE 86; RESP 18; O2SAT 98
[2024-03-30 06:00] VITALS: BP 124/74; PULSE 83; RESP 18; TEMP 36.3; O2SAT 98
[2024-03-30] MEDS: fluoxetine 20 mg Capsule PO (08:17)
--- NOTE | 2024-03-30 08:32 | PC.NURSE ---
Morning assessment Patient says that he doesn't really have anxiety. Patient said that he never has suicidal or homicidal thoughts. Patient also denies auditory or visual hallucinations. This nurse was giving him his medications, when patient swiped beside his left ear and side I hate when that happens. This nurse asked him, you hate when what happens? Patient said, nothing, nevermind. Patient appeared to be experiencing auditory hallucinations.
[2024-03-30] MEDS: nicotine 2 mg Gum BUCCAL (11:15)
[2024-03-30 13:45] VITALS: BP 121/69; PULSE 86; RESP 16; TEMP 36.6; O2SAT 98
[2024-03-30] MEDS: lurasidone 20 mg Tablet PO (17:14)
[2024-03-30 20:10] VITALS: BP 132/76; PULSE 82; RESP 16; TEMP 36.5; O2SAT 99
--- NOTE | 2024-03-30 20:59 | P.NPUPN_ITS ---
Subjective NPU 2 Subjective: Patient presented today reporting that he is feeling okay. He was working with the social work team possible sober living treatment options in the general vicinity. They did find a clear option and he has an interview with tomorrow with discussion of discharge to them in the next day or 2. He looks forward to this opportunity and denied any side effects to his medication. We discussed the risks, benefits and alternatives of increasing his Latuda and he understood and agreed to proceed as is documented in this note. Mental Status Exam 2 MSE Comments: This is a well-nourished well-developed white male in hospital scrubs with limited grooming and eye contact. No abnormal movements except for mild psychomotor agitation. He was cooperative with exam in mild distress. Speech was decreased rate and volume. Mood described as feeling a bit better, his affect was congruent. Thought process was linear. Thought content: Patient denied suicidal or homicidal ideation. There were no delusions reported or but some guardedness noted, he denied auditory or visual hallucinations but seem like he might be attending to internal stimuli at times with some improvement. Attention and concentration were mostly intact and memory appeared somewhat reliable but none were formally tested. He is alert and oriented to person, place and situation. Insight, judgment and impulse control all limited but improving. Vitals/I&O/Wt Last Vital Signs Temp 97.7 F 03/30/24 20:10 Pulse 82 03/30/24 20:10 Resp 16 03/30/24 20:10 BP 132/76 03/30/24 20:10 Pulse Ox 99 03/30/24 20:10 O2 Del Method Room Air 03/30/24 20:10 Weight last 48 hrs Weight 81.556 kg Data NPU 03/24/24 13:44 03/24/24 13:44 A&P Assessment and plan (1) Schizophrenia: (2) History of ADHD: (3) Depression: Plan This is a 29-year-old white male with a history of addiction and some mental health challenges and being off medications for years now. The patient presents with untreated schizophrenia, ADHD, and anxiety, which have been worsening. He has a history of substance abuse, including alcohol, tobacco, and intermittent illicit drug use. He is currently experiencing homelessness and has a history of occupational instability. 1.? Restarted Prozac and Latuda. Likely increase Latuda to 40 mg tomorrow. 2.? Continue every 15 minute checks for safety. 3.? Encourage individual, group and milieu therapies. 4. Encourage sober living treatment after discharge at the highest level care to which he is willing to commit. He reports that he is working with the social work team on possible rehab beds. 5. Has interview with a sober living facility tomorrow with possibility of discharge by Saturday. Involuntary Hold Information 2 96 Hour Hold: 96 Hour Involuntary Admission: Yes 96 Hour Hold Ending Date: 03/31/24 96 Hour Hold Ending Time: 13:39 Other Hold: Hold End Date: 03/31/24 Attestations NPU 2 Medical Necessity Statement*: Inpatient hospitalization is medically necessary and the clinically appropriate intervention at this time. We will monitor medications/initiate medications and make changes as indicated. Likely length of stay 1-3 days. Coding Level of Care Code Acute Code for [facility] Fwd Diagnoses Schizophrenia F20.9 History of ADHD Z86.59 Depression F32.A
[2024-03-31 06:00] VITALS: BP 106/60; PULSE 95; RESP 17; TEMP 36.7; O2SAT 96
[2024-03-31] MEDS: fluoxetine 20 mg Capsule PO (08:15)
[2024-03-31] MEDS: haloperidol 5 mg Tablet PO (08:45)
[2024-03-31 13:58] VITALS: BP 118/63; PULSE 95; RESP 16; TEMP 36.6; O2SAT 99
[2024-03-31] MEDS: lurasidone 20 mg Tablet 40 MG PO (17:18)
--- NOTE | 2024-03-31 17:43 | P.NPUPN_ITS ---
Subjective NPU 2 Subjective: Patient presented today reporting that he is doing fine. He continues to be optimistic about placement in a sober living program but was frustrated as the interview did not occur today. We agreed that we would work with the social work team to figure out what happened and make sure that the interview does happen tomorrow or that we get connected with a different program. He denied any side effects of the medication and we discussed the increase we had plan for and the Latuda. Mental Status Exam 2 MSE Comments: This is a well-nourished well-developed white male in hospital scrubs with limited grooming and eye contact. No abnormal movements except for mild psychomotor agitation. He was cooperative with exam in mild distress. Speech was decreased rate and volume. Mood described as feeling a bit better, his affect was congruent. Thought process was linear. Thought content: Patient denied suicidal or homicidal ideation. There were no delusions reported or but some guardedness noted, he denied auditory or visual hallucinations but seem like he might be attending to internal stimuli at times with some improvement. Attention and concentration were mostly intact and memory appeared somewhat reliable but none were formally tested. He is alert and oriented to person, place and situation. Insight, judgment and impulse control all limited but improving. Vitals/I&O/Wt Last Vital Signs Temp 98 F 03/31/24 13:58 Pulse 95 03/31/24 13:58 Resp 16 03/31/24 13:58 BP 118/63 03/31/24 13:58 Pulse Ox 99 03/31/24 13:58 O2 Del Method Room Air 03/31/24 13:58 Data NPU 03/24/24 13:44 03/24/24 13:44 A&P Assessment and plan (1) Schizophrenia: (2) History of ADHD: (3) Depression: Plan This is a 29-year-old white male with a history of addiction and some mental health challenges and being off medications for years now. The patient presents with untreated schizophrenia, ADHD, and anxiety, which have been worsening. He has a history of substance abuse, including alcohol, tobacco, and intermittent illicit drug use. He is currently experiencing homelessness and has a history of occupational instability. 1.? Restarted Prozac and Latuda. Increased to 40 mg. 2.? Continue every 15 minute checks for safety. 3.? Encourage individual, group and milieu therapies. 4. Encourage sober living treatment after discharge at the highest level care to which he is willing to commit. He reports that he is working with the social work team on possible rehab beds. 5. Has interview with a sober living facility tomorrow with possibility of discharge by Saturday. Involuntary Hold Information 2 96 Hour Hold: 96 Hour Involuntary Admission: Yes 96 Hour Hold Ending Date: 03/31/24 96 Hour Hold Ending Time: 13:39 Other Hold: Hold End Date: 03/31/24 Attestations NPU 2 Medical Necessity Statement*: Inpatient hospitalization is medically necessary and the clinically appropriate intervention at this time. We will monitor medications/initiate medications and make changes as indicated. Likely length of stay 1-2 days. Coding Level of Care Code Acute Code for [facility] Fwd Diagnoses Schizophrenia F20.9 History of ADHD Z86.59 Depression F32.A
[2024-03-31 20:15] VITALS: BP 105/52; PULSE 85; RESP 18; TEMP 36.8; O2SAT 96
[2024-04-01 06:00] VITALS: BP 129/78; PULSE 93; RESP 18; TEMP 36.7; O2SAT 98
[2024-04-01] MEDS: fluoxetine 20 mg Capsule PO (08:25)
[2024-04-01 14:00] VITALS: BP 127/76; PULSE 82; RESP 20; TEMP 37.2; O2SAT 98
--- NOTE | 2024-04-01 15:47 | P.NPUPN_ITS ---
Subjective NPU 2 Subjective: Patient presented today reporting that he was excited about the fact that he has been [facility]. He was asking whether he could just be discharged today and he can go hang out with some friends before going over there tomorrow. Explained to him that these programs want to get people from the hospital to their program that way they know there is no chance a person could relapse and present in some compromised state. He denied any side effects of the medication and reports that he is looking forward to leaving tomorrow. Mental Status Exam 2 MSE Comments: This is a well-nourished well-developed white male in hospital scrubs with limited grooming and eye contact. No abnormal movements except for mild psychomotor agitation. He was cooperative with exam in mild distress. Speech was decreased rate and volume. Mood described as feeling a bit better, his affect was congruent. Thought process was linear. Thought content: Patient denied suicidal or homicidal ideation. There were no delusions reported or but some guardedness noted, he denied auditory or visual hallucinations but seem like he might be attending to internal stimuli at times with some improvement. Attention and concentration were mostly intact and memory appeared somewhat reliable but none were formally tested. He is alert and oriented to person, place and situation. Insight, judgment and impulse control all limited but improving. Vitals/I&O/Wt Last Vital Signs Temp 99 F 04/01/24 14:00 Pulse 82 04/01/24 14:00 Resp 20 H 04/01/24 14:00 BP 127/76 04/01/24 14:00 Pulse Ox 98 04/01/24 14:00 O2 Del Method Room Air 03/31/24 13:58 Data NPU 03/24/24 13:44 03/24/24 13:44 A&P Assessment and plan (1) Schizophrenia: (2) History of ADHD: (3) Depression: Plan This is a 29-year-old white male with a history of addiction and some mental health challenges and being off medications for years now. The patient presents with untreated schizophrenia, ADHD, and anxiety, which have been worsening. He has a history of substance abuse, including alcohol, tobacco, and intermittent illicit drug use. He is currently experiencing homelessness and has a history of occupational instability. 1.? Restarted Prozac and Latuda. Increased to 40 mg. 2.? Continue every 15 minute checks for safety. 3.? Encourage individual, group and milieu therapies. 4. Encourage sober living treatment after discharge at the highest level care to which he is willing to commit. He reports that he is working with the social work team on possible rehab beds. 5. Interview with facility went well. Tentative plan for discharge tomorrow. Involuntary Hold Information 2 96 Hour Hold: 96 Hour Involuntary Admission: Yes 96 Hour Hold Ending Date: 03/31/24 96 Hour Hold Ending Time: 13:39 Other Hold: Hold End Date: 03/31/24 Attestations NPU 2 Medical Necessity Statement*: Inpatient hospitalization is medically necessary and the clinically appropriate intervention at this time. We will monitor medications/initiate medications and make changes as indicated. Likely length of stay 1 day. Coding Level of Care Code Acute Code for [facility] Fwd Diagnoses Schizophrenia F20.9 History of ADHD Z86.59 Depression F32.A
[2024-04-01] MEDS: lurasidone 20 mg Tablet 40 MG PO (16:01)
[2024-04-01 20:12] VITALS: BP 125/70; PULSE 69; RESP 18; TEMP 36.8; O2SAT 97
[2024-04-02 06:00] VITALS: BP 120/60; PULSE 60; RESP 16; TEMP 36.8; O2SAT 96
[2024-04-02] MEDS: fluoxetine 20 mg Capsule PO (08:23)
[2024-04-02] MEDS: nicotine 4 mg lozenge MUCOUS MEM (08:23)
--- NOTE | 2024-04-02 09:00 | P.NPUDS_ITS ---
Diagnoses at Discharge Discharge Diagnosis (1) Schizophrenia: Status: Acute (2) History of ADHD: Status: Acute (3) Depression: Status: Acute Reason for Visit Reason for Visit: 96 Hold Brief History: History of Present Illness Maximino Shore is a 29 year old male who presented to the emergency department with the following report: Chief Complaint: Psychiatric Symptoms Stated Complaint: 96 Hold Time Seen by Provider: 03/24/24 13:36 Source: patient Mode of arrival: ambulatory Limitations: no limitations History of Present Illness: 29-year-old male has a history of schizo phrenia states he has not been medicated for years he is here from the crisis stabilization unit on nine 6-hour hold as he has had increasing auditory hallucinations he denies SI or HI any states that he does not feel safe with all the hallucinations. Associated symptoms: Reports depression. He was admitted to the neuropsychiatric unit for definitive treatment of those issues. He is known to [facility] psychiatry through outpatient services through the crisis stabilization center. He presented there multiple times and seemed to be having a decompensation over the time he has been down there. They report he can often be found in the bathroom screaming at himself. He was identified as having significant auditory hallucinations and not feeling safe and so he was sent to the emergency department and then admitted and transferred to the neuropsychiatric unit. An excerpt of his mental health assessment focused CSC is included below for context and the fact there have been no substantive changes since then. He presented today reporting: Chief complaint The patient is seeking help for worsening symptoms of schizophrenia, ADHD, and anxiety, for which he has not been on medication for several years. History of the present complaint The patient, born on 1995, reported that he has been off his medications for several years due to losing track of time and not having an ID to apply for them. He previously took medication for his schizophrenia, ADHD, and anxiety. The medications he was prescribed included Prozac, Ritalin, and Latuda, which he reported worked well for him. He stopped taking these medications approximately six years ago. The patient's symptoms have been worsening, leading him to seek medical help. He has never been in a psychiatric hospital before but has attended a mental health clinic in [place], [place] for a few years. He has recently acquired medical insurance but is unsure of the details. The patient has a history of substance use, including tobacco, vaping, and alcohol. He reported that he used to be an alcoholic but has since quit drinking. He has tried marijuana a few times but stopped due to discomfort. He has also experimented with other drugs in the past but did not continue their use. He has been to rehab for a few months but has never had any DUI charges or other legal issues related to substance use. The patient reported experiencing significant depression, including suicidal thoughts, but has never acted on these thoughts. He also experiences constant anxiety and worry. There have been instances where he felt paranoid, as if people were out to get him or following him. He has also had experiences of hearing and seeing things that were not there. He reported having issues with nightmares and flashbacks. The patient has a history of self-injurious behavior, including cutting and burning himself. He has also experienced periods of low mood and feelings of helplessness. He has never been in a residential or foster care. The patient dropped out of school at the 10th grade and has attempted to get his GED three times without success. He identifies as heterosexual and has been in relationships lasting two to three years. He has never been and does not have any biological children. 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 He is currently homeless and has been for a few years since leaving [place] to travel towards [place]. He has been incarcerated a couple of times for public intoxication, with the longest time being six months. The patient denied any current thoughts of self-harm or harm to others. He also denied feeling paranoid or experiencing hallucinations at the time of the consultation. The plan is to restart his Prozac and Latuda medications, but not the Strattera. Social history The patient has a history of alcoholism but quit drinking a long time ago. He has tried cannabis and other drugs a few times in the past, but did not continue their use. He has been to rehab for a few months. He has no history of DUI or other charges. He has a history of tobacco use and currently vapes. He has been homeless for a few years after leaving [place] and traveling towards [place]. 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 He identifies as heterosexual and has been in relationships lasting two to three years. He has never been and has no biological children. He dropped out of school in the 10th grade and has tried to get his GED three times without success. Per his 01/21/2024 outpatient psychiatric assessment: Admission Information Reason for Admission: Client was referred to visit our facility by the [facility] emergency room. Per records, Client had spoken to the the admitting physician to the NPU and does not meet criteria for admission at this time. Client was referred to the Crisis center for assessment and assistance obtaining services through [facility]. Chief Complaint: Client reports hearing auditory hallucinations, making it difficult to concentrate and maintain focus. Current Presentation: Maximino is a 28 year old male who appears well-groomed and appropriately dressed for the weather. Eye contact and activity level appear normal. Client was cooperative overall, but did appear disengaged throughout the conversation, utilizing his cellphone frequently throughout the encounter. Mood could be described as slightly anxious, with client appearing fidgety or hesitant at times. Thought process is mostly logical with client aware of current symptoms. Client is oriented to person/place/time. Client reports hearing auditory hallucinations, specifying it sounds like faint voices. Client would not disclose what the voices were saying, reporting they are faint and/or vague. He does state this is negatively impacting his ability to focus. In the past, he disclose it felt like they were taking control and feeling an immense draining feeling. He states they auditory hallucinations have been occurring for several years and have been fairly consistent. He denies any changes or worsening of symptoms. Client denies any visual hallucinations at this time. Client appears to have moderate insight and moderate judgment. Maximino is currently unhoused and has been staying at [facility], presently. He reports visiting the ER on recommendation from [facility] staff and was subsequently referred to the crisis center by the attending physician of the [facility] ER. History Past Diagnosis and Psychiatric History: Client self-reports a history of Schizophrenia, depression, anxiety. Maximino states he recieved these diagnosis from his healthcare provider in [place], [place] at [facility]. He reports he recieved these diagnosis approximately 10 years ago. Maximino endorses being treated with the medications Prozac, Ritalin, and an anti-depressant but states he has not been medicated for the past 3 years. Current Social/Environmental Situation Current Living Environment/Relationships: Client reports he is staying at the [facility] for the past 2 weeks. Do you have any relationships that are supportive of your recovery? (e.g., family, friends): Yes (no) Do you currently live where others drink alcohol and/or use: No Are you currently involved in relationships or situations that pose a threat to your safety?: No Are you currently involved in relationships or situations that could negatively affect your recovery?: No Have you ever had hobbies? How do you spend free time? (e.g., interests; activities; recreation)?: Yes (Play videogames, prefers to stay solitary) Spiritual Practice: None (non buddhism) Is this still your preference: Yes Are you currently involved with forensic social worker or the legal system? 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 Is patient receiving any regular support (i.e., eastman, food, housing) from family/friend? Include spouse?s contribution; exclude support by an institution: No Does this constitute the majority of your support?: Yes Usual employment pattern, past 3 years? Employment/Support Comments: not at the moment How much money did you receive from the following sources in the past 30 days? Use Patient Rating Scale Use Interviewer Severity Rating Employment/Support Comments: Maximino is not currently employed. Substance Use History Substance Use: denies substance/drug use Are you currently experiencing withdrawal symptoms such as tremors, excessive sweating, rapid heart rate, blackouts, anxiety, vomiting. etc.?: No Do you get physically ill when you stop using alcohol/or drugs?: No Do you have a history of serious withdrawal, seizures, or life-threatening symptoms during withdrawal?: No Do you find yourself using more alcohol and/or other drugs than you intend to?: No Do you find yourself using more alcohol and/or drugs in order to get the same high?: No What is your family history of alcohol and/or drug use?: Client reports no current substance use Involuntary Hold Information 96 Hour Hold: 96 Hour Involuntary Admission: Yes 96 Hour Hold Ending Date: 03/31/24 96 Hour Hold Ending Time: 13:39 Other Hold: Hold End Date: 03/31/24 Mental Status Exam MSE Comments: This is a well-nourished well-developed white male in hospital scrubs with limited grooming and eye contact. No abnormal movements except for mild psychomotor agitation. He was cooperative with exam in mild distress. Speech was decreased rate and volume. Mood described as feeling a bit better, his affect was congruent. Thought process was linear. Thought content: Patient denied suicidal or homicidal ideation. There were no delusions reported or but some guardedness noted, he denied auditory or visual hallucinations but seem like he might be attending to internal stimuli at times with some improvement. Attention and concentration were mostly intact and memory appeared somewhat reliable but none were formally tested. He is alert and oriented to person, place and situation. Insight, judgment and impulse control all limited but improving. Discharge Data Studies Completed and Pending: Laboratory Results WBC 5.06 10^3/uL (3.2 9-11.43) 03/24/24 13:44 RBC 4.56 10^6/uL (3.8 5-5.65) 03/24/24 13:44 Hgb 13.90 g/dL (11.27 -16.99) 03/24/24 13:44 Hct 42.0 % (37-53) 03/24/24 13:44 MCV 92.1 fl (82-101) 03/24/24 13:44 MCH 30.5 pg (27-33) 03/24/24 13:44 MCHC 33.1 g/dL (30-55) 03/24/24 13:44 RDW 13.2 % (12.1-15.1 ) 03/24/24 13:44 Plt Count 345 10^3/cmm (157 -399) 03/24/24 13:44 MPV 9.0 fL (7.4-10.4) 03/24/24 13:44 Neut % (Auto) 53.8 % 03/24/24 13:44 Lymph % (Auto) 31.2 % 03/24/24 13:44 [place] % (Auto) 9.5 % 03/24/24 13:44 Eos % (Auto) 4.3 % 03/24/24 13:44 Baso % (Auto) 1.0 % 03/24/24 13:44 Neut # (Auto) 2.72 10^3/uL (1.8 -7.7) 03/24/24 13:44 Lymph # (Auto) 1.6 10^3/uL (0.8- 4.8) 03/24/24 13:44 [place] # (Auto) 0.5 10^3/uL (0.2- 0.9) 03/24/24 13:44 Eos # (Auto) 0.2 10^3/uL (0.0- 0.8) 03/24/24 13:44 Baso # (Auto) 0.1 10^3/uL (0.0- 0.1) 03/24/24 13:44 Nucleated RBC % (a uto) 0 % 03/24/24 13:44 Nucleated RBCs # 0.0 /100WBC 03/24/24 13:44 Sodium 137 mmol/L (136-1 45) 03/24/24 13:44 Potassium 4.1 mmol/L (3.5-5 .1) 03/24/24 13:44 Chloride 100 mmol/L (98-10 7) 03/24/24 13:44 Carbon Dioxide 27 mmol/L (22-29) 03/24/24 13:44 Anion Gap 14.1 (5-19) 03/24/24 13:44 BUN 11 mg/dL (6-20) 03/24/24 13:44 Creatinine 0.6 mg/dL (0.7-1. 2) L 03/24/24 13:44 GFR Calculation 158.2 mL/min (90- 130) H 03/24/24 13:44 Glucose 103 mg/dL (65-115 ) 03/24/24 13:44 Calculated Osmolal ity 284 mOsm/kg (285- 295) L 03/24/24 13:44 Calcium 9.2 mg/dL (8.5-10 .5) 03/24/24 13:44 Total Bilirubin 0.3 mg/dL (0.15-1 .2) 03/24/24 13:44 AST 22 U/L (0-40) 03/24/24 13:44 ALT 23 U/L (0-41) 03/24/24 13:44 Alkaline Phosphata se 91 U/L (40-130) 03/24/24 13:44 Total Protein 7.2 g/dL (6.6-8.7 ) 03/24/24 13:44 Albumin 4.5 g/dL (3.5-5.2 ) 03/24/24 13:44 Globulin 2.7 g/dL (1.3-4.6 ) 03/24/24 13:44 Salicylates < 0.3 mg/dL (3-10 ) L 03/24/24 13:44 Urine Opiates Scre en Negative ng/mL (N egative) 03/24/24 13:46 Acetaminophen < 5.0 ug/mL (10-3 0) L 03/24/24 13:44 Ur Barbiturates Sc reen Negative ng/mL (N egative) 03/24/24 13:46 Ur Phencyclidine S crn Negative ng/mL (N egative) 03/24/24 13:46 Ur Amphetamines Sc reen Negative ng/mL (N egative) 03/24/24 13:46 U Benzodiazepines Scrn Negative ng/mL (N egative) 03/24/24 13:46 Urine Cocaine Scre en Negative ng/mL (N egative) 03/24/24 13:46 U Marijuana (THC) Screen Negative ng/mL (N egative) 03/24/24 13:46 Ethyl Alcohol < 10 mg/dL (0-10) 03/24/24 13:44 Vitals: Last Vital Signs Temp 98.2 F 04/02/24 06:00 Pulse 60 04/02/24 06:00 Resp 16 04/02/24 06:00 BP 120/60 04/02/24 06:00 Pulse Ox 96 04/02/24 06:00 O2 Del Method Room Air 03/31/24 13:58 Discharge Plan Discharge Patient Disposition: Home Condition: Stable Prescriptions: New fluoxetine 20 mg Capsule 20 mg PO DAILY 30 Days Qty: 30 1RF lurasidone 40 mg tablet 40 mg PO 1700 30 Days Qty: 30 1RF haloperidol 5 mg Tablet 5 mg PO DAILY PRN (Reason: Agitation) 30 Days Qty: 30 1RF Referrals: [facility] Behavioral Health Care [Outside] Discharge Diet: Regular Discharge Activity: Resume usual activity Patient Instructions: Opioid Safety Discharge Attestations NPU Time Spent in Discharge Care*: less than 30 min Specific Discharge Activities: Specific discharge activities: educating patient, discussing with insurance case manager/social workers/dc planners, documenting/other paperwork and evaluating patient/reviewing data Coding Level of Care Code Acute Code for Chg Fwd Diagnoses Schizophrenia F20.9 History of ADHD Z86.59 Depression F32.A
[2024-04-02 09:10] VITALS: BP 120/60; PULSE 60; RESP 16; TEMP 36.8; O2SAT 98
== END 2024-04-02 13:16 | disposition home or self-care (01) | DRG 885 ==
LOC: ER 14:05 → NP 14:08
PROVIDERS: Admitting Provider Psychiatry & Neurology Psychiatry; Emergency Provider Emergency Medicine; Visit Provider Psychiatry & Neurology Psychiatry
DX: F20.9 Schizophrenia, unspecified (principal); F90.9 Attention-deficit hyperactivity disorder, unspecified type; F32.A Depression, unspecified
CPT/HCPCS: 36415; 80053; 80306; 80307; 85025; 97150; 97165; 99285